=== PATIENT | male | born 1965 | race Caucasian/White ===

== ENCOUNTER 2017-01-12 17:04 | Observation (INO) | payer OTHER ==
[2017-01-12 17:25] LABS: BASO % 0.4 % (0-2); CARBON DIOXIDE-VENOUS 25 mmol/L (21-33); EOS % 1.4 % (0-7); EOSINOPHIL ABSOLUTE COUNT 0.1 tho/cmm (0.0-0.7); GLUCOSE 130 mg/dl (65-120); HCT-HEMATOCRIT 46.8 % (36.0-53.5); HGB-HEMOGLOBIN 16.4 gm/dl (13.5-17.0); IMMATURE GRANULOCYTES ABSOLUTE 0.01 tho/cmm (0-0.03); IMMATURE GRANULOCYTES PERCENT 0.2 % (0-0.3); LYMPH % 31.4 % (20-45); LYMPH ABSOLUTE COUNT 1.7 tho/cmm (0.8-4.5); MCH (MEAN CORPUSCULAR HGB) 29.7 pg (28.0-32.0); MCV (MEAN CELL VOLUME) 84.8 fl (82.0-96.0); MEAN PLATELET VOLUME 9.7 cmc (9.4-12.4); MONO % 8.1 % (0-12); MONOCYTE ABSOLUTE COUNT 0.5 tho/cmm (0.0-1.2); NEUTROPHIL ABSOLUTE COUNT 3.2 tho/cmm (1.6-8.0); NEUTROPHIL-AUTOMATED 3.2 tho/cmm (1.6-8.0); NEUTROPHILS % 58.5 % (40-80); PLATELET COUNT 214 tho/cmm (150-450); POTASSIUM 3.7 mmol/L (3.7-5.1); RED BLOOD COUNT 5.52 mil/cmm (4.40-5.70); RED CELL DISTRIBUTION WIDTH 12.8 % (12.4-16.4); SODIUM 139 mmol/L (135-146); WHITE BLOOD COUNT 5.5 tho/cmm (4.0-10.0); eGFR VALUE FOR BLACK >90 mL/Min
[2017-01-12 17:29] LABS: PROTHROMBIN TIME 11.2 SECONDS (9.0-13.6)
[2017-01-12 17:42] LABS: ESR-ERYTHROCYTE SED RATE 1 mm/hr (0-20)
[2017-01-12 17:43] LABS: ANION GAP 14 mmol/L (0-20); CHLORIDE 104 mmol/l (96-110)
[2017-01-12 17:44] LABS: ALBUMIN 3.8 g/dl (3.5-5.0); ALKALINE PHOSPHATASE 51 U/L (33-138); ALT/SGPT 29 U/L (12-78); AST/SGOT 23 U/L (10-40); BILIRUBIN,TOTAL 0.6 mg/dl (0.0-1.5); BLOOD UREA NITROGEN 13 mg/dl (6-24); CALCIUM 8.5 mg/dl (8.5-10.5)
[2017-01-12] MEDS ORDERED: PEPCID20 M1 PO (18:06)
[2017-01-13] MEDS ORDERED: ASPIRIN325 M3 PO (17:04)
== END 2017-01-13 17:29 ==
LOC: EDMED 17:04 → EMR2 19:13 → 5EB 22:10
PROVIDERS: Emergency Medicine; ADMIT Family Medicine
DX: G45.9 Transient cerebral ischemic attack, unspecified (principal); K21.9 Gastro-esophageal reflux disease without esophagitis; Z79.82 Long term (current) use of aspirin; Z88.0 Allergy status to penicillin
CPT/HCPCS: A9577; C8929; G0378; G8978-GP-CH; G8979-GP-CH; G8980-GP-CH